=== PATIENT | male | born 1945 | race Caucasian/White ===

== ENCOUNTER → 2017-09-15 06:03 | Outpatient (CLI) | payer MEDICARE, SELFPAY ==
--- NOTE | 2017-09-15 | NM_ITS ---
History and Indications: Coronary artery disease, hypertension, hyperlipidemia, family history and shortness of breath Procedure: Patient exercised on Ricardo protocol 8 minutes, resting heart rate of 42 bpm, resting blood pressure 175/83, with exercise maximum heart rate achieved was 94 bpm which is equal to 63% of the maximum predicted heart rate and a blood pressure was 212/90. With exercise patient complained of shortness of breath denied any complained of chest pain. Patient has good exercise capacity achieved 10.1mets of workload on treadmill, the blood pressure response to exercise was hypertensive. Patient did not achieve the target heart rate. Electrocardiogram: Resting electrocardiogram showed sinus bradycardia with exercise there is less than 1.[address] segment depression noted from the baseline EKG. The EKG portion of the exercise Myoview is nondiagnostic as patient did not achieve the target heart rate. Cardiac stress and resting SPECT images: Cardiac stress and resting SPECT images were obtained using technetium 99 Myoview 10.8 mCi at rest and 32.3 mCi stress, gated SPECT further analysis of segmental wall motion and calculation of the ejection fraction also done. Cardiac stress and rest SPECT images show decreased tracer activity in the anteroapical wall which improves on the resting images suggestive of ischemia in that area. 2% with no obvious regional wall motion abnormality, right ventricle is normal size and contractility. Conclusion: 1. The EKG portion of the exercise Myoview is nondiagnostic, patient has good exercise capacity achieved 10.1mets of workload on treadmill, the blood pressure response to exercise was hypertensive, test was started due to shortness of breath, patient did not achieve the target heart rate. 2. Scintigraphic evidence of mild reversible ischemia involving the anteroapical wall, either derived ejection fraction is 62% with no obvious regional wall motion abnormality, right ventricle is normal size and contractility. 3. Abnormal exercise Myoview study.
--- NOTE | 2017-09-15 07:51 | CA_ITS ---
PROCEDURE: 2-D M-mode and color Doppler study INDICATIONS FOR THE TEST: Chest pain COPD Heart Murmurx Tobacco Smoking Palpitations Fatigue Syncope Edema HypertensionxDiabetes Mellitus Rheumatic Fever SOBxDOE Obesity Hyperlipidemiax Family History HD Additional History CABG Comments: Right ventricular enlargement, possible bicuspid aortic valve PATIENT INFORMATION HEIGHT: 68'' WEIGHT: 209 GENDER: Male B/P:175/83 2-D/M-MODE INTERPRETATION: 2-D MEASUREMENTS OBSERVED VALUES IN CMS Right Ventricular Dimension (RVDd) 2.4 Interventricular Septum (Thickness)(IVsd) 1.0 Left Ventricular Internal Dimensions(LVIDd) 5.1 Left Ventricular Posterior Wall (Thickness)(LVPWd) 1.2 Aortic Root 3.4 Aortic Cusp Separation 1.6 Left Atrial Dimensions (LAD) 4.3 2D 1. Left atrium is mildly enlarged, left ventricle is normal size, there is mild concentric left ventricular hypertrophy, visually estimated ejection fraction 55% with no obvious regional wall motion abnormality. 2. The right atrium is normal size, right ventricle is qualitatively mildly enlarged with normal contractility. 3. The aortic valve is thickened and calcified, morphology is not well visualized. 4. The mitral and tricuspid valve leaflets are minimally thickened. 5. The pulmonic valve is poorly visualized. 6. No significant pericardial effusion noted. DOPPLER INTERROGATION: 1. The maximum aortic out flow velocity is 2.17 m/s, resulting in a mean gradient across valve of 10 mmHg, this represents mild aortic stenosis, there is no aortic insufficiency. 2. The mitral inflow velocity within normal range, there is no mitral stenosis, there is mild mitral regurgitation. 3. There is mild tricuspid regurgitation noted, calculated right ventricular systolic pressure is 35 mmHg. 4. Diastolic parameters are inconclusive. CONCLUSION: 1. Mildly enlarged left atrium, normal left ventricular size, mild concentric left ventricular hypertrophy, visually estimated ejection fraction 55% with no obvious regional wall motion abnormality, diastolic parameters are inconclusive. 2. Thickened and calcified aortic valve, morphology of the valve is not well visualized, possibility of the bicuspid aortic valve cannot be excluded, the mean gradient across valve is a 10 mmHg represents mild aortic stenosis, there is no aortic insufficiency, aortic root is normal size. 3. Mild mitral and tricuspid regurgitation, calculated right ventricular systolic pressure 35 mmHg consistent with mild pulmonary hypertension 4. No significant pericardial effusio
== END ==
PROVIDERS: Visit Provider Internal Medicine
DX: R06.02 Shortness of breath (principal); I25.10 Atherosclerotic heart disease of native coronary artery without angina pectoris; E78.5 Hyperlipidemia, unspecified; I11.9 Hypertensive heart disease without heart failure
CPT/HCPCS: 78452; 78454; 93017; 93306

== ENCOUNTER → 2018-09-19 16:09 | Outpatient (CLI) | payer MEDICARE, SELFPAY ==
--- NOTE | 2018-09-19 16:15 | XR_ITS ---
XR chest 2V HISTORY: Chest pain, nonsmoker ITS.REASON: dyspnea ORDERING PHYSICIAN: Ant Nichole MD PATIENT AGE: 72 years COMPARISON: None FINDINGS: There has been a prior median sternotomy with CABG. Heart size is upper limits of normal. Faint nodularity is noted in the sixth interspace on both sides and could be due to overlying nipple shadows. No lobar consolidation or collapse is evident. On the lateral view there is a nodular opacity noted overlying the infrahilar region at 14 mm. The remaining lungs are clear. There are degenerative changes in the left shoulder and thoracic spine. IMPRESSION: Nodular opacities overlying both lower lung zones which could be due to nipple shadows. There is however, a 14 mm nodular opacity overlying the infrahilar region on the lateral view. Chest CT suggested for further evaluation for these above mentioned abnormalities. Pulmonary nodule or nodules cannot be excluded. Prior CABG with borderline cardiomegaly
== END ==
PROVIDERS: PCP Psychiatry & Neurology Neurology; Visit Provider Internal Medicine
DX: E78.2 Mixed hyperlipidemia (principal); I11.9 Hypertensive heart disease without heart failure; I25.10 Atherosclerotic heart disease of native coronary artery without angina pectoris; R00.1 Bradycardia, unspecified; R06.09 Other forms of dyspnea; R60.9 Edema, unspecified; Z95.1 Presence of aortocoronary bypass graft
CPT/HCPCS: 71046

== ENCOUNTER → 2019-10-01 08:59 | Outpatient (CLI) | payer MEDICARE, SELFPAY ==
[2019-10-01 09:35] LABS: Basophils % 0.8 % (0.1-2.0); Eosinophils # 0.2 K/mm3 (0.0-0.4); Eosinophils % 3.6 % (0.1-12.0); Hemoglobin 15.5 g/dL (14.1-18.0); Lymphocytes # 1.6 K/mm3 (0.7-4.5); Lymphocytes % 36.7 % (10-50); Mean Corpuscular HGB Conc 31.7 g/dL (31.8-35.4); Mean Corpuscular Hemoglobin 26.9 pg (27.0-31.2); Mean Corpuscular Volume 84.8 fl (80-94); Mean Platelet Volume 8.1 fl (7.4-10.4); Monocytes # 0.4 K/mm3 (0.1-1.0); Monocytes % 9.1 % (1.7-9.3); Neutrophils # 2.1 K/mm3 (1.8-7.8); Neutrophils % 49.8 % (37.0-80.0); Platelet Count 173 K/mm3 (142-424); Red Blood Count 5.78 M/mm3 (4.60-6.20); Red Cell Distribution Width 14.1 % (11.5-17.5); White Blood Count 4.3 K/mm3 (4.8-10.8)
[2019-10-01 10:36] LABS: Alanine Aminotransferase 32 U/L (12-78); Albumin Level 3.7 gm/dL (3.4-5.0); Alkaline Phosphatase 73 U/L (46-116); Anion Gap 10.9 mEq/L (5-15); Aspartate Amino Transferase 18 U/L (15-37); Bilirubin,Direct 0.1 mg/dL (0.0-0.2); Bilirubin,Indirect 0.5 mg/dL (0.0-0.9); Bilirubin,Total 0.6 mg/dL (0.2-1.0); Blood Urea Nitrogen 15 mg/dL (7-18); Calcium 8.9 mg/dL (8.5-10.1); Carbon Dioxide 30 mmol/L (21.0-32.0); Chloride 107 mmol/L (98-107); Chol/HDL Ratio 2.8 (1-3.5); Cholesterol 99 mg/dL (140-200); Creatinine,Serum 0.95 mg/dL (0.70-1.30); Estimated Glomerular Filt Rate 78 ml/min (>60); Free T4 (Free Thyroxine) 0.92 ng/dl (0.76-1.46); GFR (African American) 94 ML/MIN (>60); Glucose 116 mg/dL (74-106); HDL Cholesterol 35 mg/dL (27-67); LDL Cholesterol 55 mg/dL (0-130); Potassium 4.9 mmoL/L (3.5-5.1); Prostate Specific Ag, Diagnost 1.05 ng/mL (0.0-4.0); Sodium 143 mmol/L (136-145); Thyroid Stimulating Hormone 1.74 uIU/ml (0.358-3.740); Triglycerides 47 mg/dL (30-200); VLDL Cholesterol 9 mg/dL (0-40)
== END ==
PROVIDERS: Visit Provider Internal Medicine
DX: E78.2 Mixed hyperlipidemia (principal); I11.9 Hypertensive heart disease without heart failure; I25.10 Atherosclerotic heart disease of native coronary artery without angina pectoris; R00.1 Bradycardia, unspecified; Z95.1 Presence of aortocoronary bypass graft; R06.00 Dyspnea, unspecified; R35.0 Frequency of micturition; R60.9 Edema, unspecified
CPT/HCPCS: 36415; 80048; 80061; 80076; 84153; 84439; 84443; 85025

== ENCOUNTER → 2021-09-22 13:46 | Outpatient (CLI) | payer MEDICARE, SELFPAY ==
[2021-09-22 14:26] LABS: Basophils # 0.1 K/mm3 (0-0.2); Basophils % 1.6 % (0.1-2.0); Eosinophils # 0.1 K/mm3 (0.0-0.4); Eosinophils % 2.9 % (0.1-12.0); Hematocrit 50.6 % (42.0-52.0); Lymphocytes # 1.9 K/mm3 (0.7-4.5); Lymphocytes % 37.4 % (10-50); Mean Corpuscular HGB Conc 31.6 g/dL (31.8-35.4); Mean Corpuscular Hemoglobin 27.6 pg (27.0-31.2); Mean Corpuscular Volume 87.3 fl (80-94); Mean Platelet Volume 8.6 fl (7.4-10.4); Monocytes # 0.5 K/mm3 (0.1-1.0); Monocytes % 9.7 % (1.7-9.3); Neutrophils # 2.4 K/mm3 (1.8-7.8); Neutrophils % 48.3 % (37.0-80.0); Platelet Count 202 K/mm3 (142-424); Red Cell Distribution Width 14.5 % (11.5-17.5)
[2021-09-22 14:44] LABS: Alanine Aminotransferase 27 U/L (12-78); Albumin Level 4.3 g/dl (3.5-5.0); Alkaline Phosphatase 59 U/L (38-126); Anion Gap 11.7 mEq/L (5-15); Aspartate Amino Transferase 24 U/L (17-59); Bilirubin,Indirect 0.5 mg/dL (0.0-0.9); Bilirubin,Total 0.5 mg/dl (0.2-1.3); Bilirubin,Unconjugated 0.5 mg/dL (0.0-1.1); Blood Urea Nitrogen 16 mg/dl (9-20); Calcium 9.7 mg/dl (8.4-10.2); Carbon Dioxide 29 mmol/L (22.0-30.0); Chloride 105 mmol/L (98-107); Estimated Glomerular Filt Rate 82 ml/min (>60); GFR (African American) 100 ML/MIN (>60); Glucose 98 mg/dl (74-100); Potassium 4.7 mmoL/L (3.5-5.1); Sodium 141 mmol/L (136-145); Total Protein,Serum 6.4 g/dl (6.3-8.2)
[2021-09-22 15:13] LABS: Thyroid Stimulating Hormone 1.24 uIU/mL (0.465-4.68)
== END ==
PROVIDERS: Visit Provider Internal Medicine
DX: E78.2 Mixed hyperlipidemia (principal); I11.9 Hypertensive heart disease without heart failure; R00.1 Bradycardia, unspecified; Z95.1 Presence of aortocoronary bypass graft; R06.00 Dyspnea, unspecified; I25.10 Atherosclerotic heart disease of native coronary artery without angina pectoris
CPT/HCPCS: 36415; 80048; 80076; 84439; 84443; 85025

== ENCOUNTER → 2022-10-12 12:12 | Outpatient (CLI) | payer MEDICARE, SELFPAY ==
--- NOTE | 2022-10-12 | CA_ITS ---
APPROVED REPORT Exam: Pharmacologic Technologist: Robyn Cleaning, Ht: 5 ft 8 in Wt: 218 lbs BSA: 2.12 m2 HR: 45 bpm BP: 182/74 mmHg Medical History Medical History: HTN, Hyperlipidemia Medications: Lisinopril,,,,, Aspirin,,,,, Hydrochlorothiazide,,,,, Atorvastatin,,,,, Carvedilol,,,,, Citalopram,,,,, MeLOXICAM,,,,, CloPIdogrel,,,,, Ezetimbe,,,,, TUrmeric,,,,, Allergies: celecoxib, prasugrel Cardiac Risk Factors: HTN, Hyperlipidemia Stress Test Details Test: LEXISCAN HR Resting HR: 46 bpm Max Heart Rate (APMHR): 144.573113 bpm Max HR Achieved: 62 bpm Target HR (85% APMHR): 122.239274 bpm % of APMHR: 43.06 Recovery HR: 51 bpm BP Resting BP: 182/74 mmHg Max BP: 182/74 mmHg Recovery BP: 174.0/95.0 mmHg ECG Clinical Exercise duration: 04:01 min Highest Stage Achieved: Exercise capacity: 1.0 METs Stress ECG Conclusion PT BECAME SOA RARE PAC/PVC <1.[address] CHANGES Test Summary REST 03:19 . . 46 . 182/ 74 . . Stage 1 01:00 . . 54 . . . . Stage 2 01:00 . . 59 . . . . Stage 3 01:00 . . 55 . 167/ 74 . . Stage 4 01:00 . . 52 . 169/ 79 . . Stage 4 01:01 . . 52 . 169/ 79 . Stop exercise at 04:01 RECOVERY 01:00 . . 54 . . . . RECOVERY 02:00 . . 53 . 160/ 85 . . RECOVERY 02:57 . . 51 . 174/ 95 . . Electronically signed by : Justyn Ta MD 10/12/2022 21:40:18
--- NOTE | 2022-10-12 12:16 | NM_ITS ---
APPROVED REPORT Exam: Nuclear Stress Test Indication: short of breath..fatigue Patient Location: Outpatient Stress Tech: Robyn Cleaning NM Tech:Sudha Cochran, ARRT, RT (R)(N) Ht: 5 ft 9 in Wt: 214 lbs HR: 46 bpm BP: 182/74 mmHg BSA: 2.13 m2 TID: 1.33 BMI: 31.5 History: short of breath..fatigue Procedure: Patient received 0.4 mg of intravenous Lexiscan, resting heart rate 46 bpm, resting blood pressure 182/74 mmHg, with Lexiscan maximum heart rate achieved was 62 bpm which is Less than 85 % of the maximum predicted heart rate and blood pressure was 182/74 mmHg. With Lexiscan, patient denied any complaint of chest pain. Electrocardiogram Resting electrocardiogram showed sinus bradycardia, with Lexiscan there is less than 1.[address] segment depression noted from the baseline EKG. The EKG portion of the Lexiscan is nondiagnostic. Cardiac Stress and Resting SPECT Images: Cardiac Stress and Resting SPECT images were obtained using technetium 99m Myoview 32.2 mCi stress and 10.58 mCi at rest. Gated SPECT analysis of segmental wall motion and calculation of the ejection fraction also done. Prone images were also obtained. Cardiac stress and rest SPECT images show uniform myocardial activity without segmental perfusion abnormality, computer derived ejection fraction is 58% with no regional wall motion abnormality, there is transient ischemic dilatation of the left ventricle seen. Conclusion: 1. The EKG portion of the Lexiscan is nondiagnostic. 2. No scintigraphic evidence of reversible ischemia seen, computer derived ejection fraction 58% with no regional wall motion abnormality, there is transient ischemic dilatation of the left ventricle seen, raising the concerns for presence of balanced ischemia or multivessel coronary artery disease. 3. Abnormal Lexiscan Myoview study. Electronically signed by : Justyn Ta MD 10/12/2022 21:50:57
--- NOTE | 2022-10-12 13:32 | HMH.ITSHM ---
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 []TUMERIC MELOXICAM LISINOPRIL HCTZ EZETIMIBE CLOPIDOGREL CITALOPRAM CARVEDILOL ATORVASTATIN ASA
--- NOTE | 2022-10-12 13:44 | CA_ITS ---
APPROVED REPORT EXAM: Comprehensive 2D, Doppler, and color-flow Echocardiogram Respiratory Clinician: Faye Carmona RVT Ht: 5 ft 8 in Wt: 218lbs BSA: 2.12 BP: 142/73 mmHg Indications: SOA,CAD,ANGINA,PRE-OP,CABG,BRADYCARDIA,,/ BICUPSID AO TDS 2D Dimensions LVOT 2.14 cm (M/F) 1.5-2.5 LA Volume 47.30 mL LA Volume Index 22.31 mL/m2 (M/F) 16-34 M-Mode Dimensions RVDd 4.42 cm (0.9-2.6) LA Diam 5.34 cm (1.9-4.0) LVDd 6.18 cm (3.5-5.7) Ao Diam 2.85 cm (2.0-3.7) LVDs 4.34 cm (3.5-5.7) IVSd 1.01 cm (0.6-1.1) PWd 0.48 cm (0.6-1.1) EF (Teich) 55.90% FS 29.80% EDV (Teich) 192.60 mL TAPSE 2.22 (<1.7) ESV (Teich) 84.90 mL LV Diastology E Decel Time 200.00 (160-240 msec) E/A Ratio 0.9 MED E' 5.00 (< 7 cm/sec) E'/MED E' Ratio 17.00 (>14) LAT E' 8.40 (<10 cm/sec) E/LAT E' Ratio 10.12 (>14) Aortic Valve LVOT Max 135.00 (70-110 cm/s) LVOT VTI 32.38 cm AoV Peak Inder. 204.00 (50-130 cm/s) AO Peak GR. 16.70 mmHg AO Mean GR. 9.60 (<5 mmHg) AO VTI 50.96 (18-25 cm) MUSTAPHA (VTI) 2.29 (2.5-4.5 cm2) Mitral Valve MV E Max Inder. 85.00 (40-130 cm/s) MV A Velocity 96.00 (40-130 cm/s) E/A Ratio 0.88 MV Decel. Time 200.00 (160-240 ms) MV PHT 59.00 ms Pulmonary Valve PV Peak Velocity 96.00 (50-150 cm/s) Tricuspid Valve TR P. Velocity 273.00 cm/s RAP Estimate 10.00 mmHg RVSP 39.80 mmHg Left Ventricle Technically difficult study because of the patient factors and poor acoustic windows. Left atrium is mildly enlarged, left ventricle is normal size mild concentric left ventricular hypertrophy, estimated ejection fraction 55% with no regional wall motion abnormality, grade 2 diastolic dysfunction seen without tissue Doppler evidence of raise left atrial pressure. Right Ventricle Right atrium and right ventricle are mildly enlarged with normal contractility. Aortic Valve Aortic valve is thickened and calcified with mild restriction in the leaflet mobility, aortic valve does not appear to be bicuspid in the study. Doppler is not indicated for significant aortic stenosis or aortic insufficiency. Mitral Valve Mitral valve is minimally thickened, there is mild mitral regurgitation. Tricuspid Valve Tricuspid valve grossly normal, there is mild tricuspid regurgitation, tricuspid regurgitation jet velocity is inadequate for calculation of the right ventricular systolic pressure. Pulmonic Valve Pulmonic valve is poorly visualized. Great Vessels Aortic root is normal size. Inferior vena cava is normal size with normal inspiratory collapse. Pericardium No significant pericardial effusion noted. Conclusion 1. Mild biatrial enlargement, normal left ventricular size mild concentric left ventricular hypertrophy, estimated ejection fraction 55% with no regional wall motion abnormality, grade 2 diastolic dysfunction seen without tissue Doppler evidence of reduced left atrial pressure. 2. Mildly enlarged right ventricle with normal contractility. 3. Thickened and calcified aortic valve without Doppler evidence of aortic stenosis aortic insufficiency. 4. Mild mitral and tricuspid regurgitation. 5. No significant pericardial effusion noted. 6. Inferior vena cava is normal size with normal inspiratory collapse. Electronically signed by : Justyn Ta MD 10/13/2022 06:05:51
== END ==
PROVIDERS: PCP Family Medicine; Visit Provider Internal Medicine
DX: E78.2 Mixed hyperlipidemia (principal); I11.9 Hypertensive heart disease without heart failure; I25.10 Atherosclerotic heart disease of native coronary artery without angina pectoris; R00.1 Bradycardia, unspecified; Z01.810 Encounter for preprocedural cardiovascular examination; Z95.1 Presence of aortocoronary bypass graft
CPT/HCPCS: 78452; 93017; 93306; A9502; J2785